=== PATIENT | female | born 1940 | race Caucasian/White ===

== ENCOUNTER 2021-12-30 08:13 | Day surgery (SDC) | payer MEDICARE, OTHER ==
[~2021-12-30] VITALS: Ht 165.1 cm; Wt 62.0 kg
[~2021-12-30 08:13] MED LIST: MELATONIN1 MG PO; PRILOSEC OTC20 MG PO; SYNTHROID25 MCG PO
[2021-12-30] MEDS ORDERED: SIMVASTATIN5 MG PO (08:48)
--- NOTE | 2021-12-30 10:26 | NUR ---
12/30/21 1026 Sandra Winkler 2742 PT ARRIVED IN PACU SLEEPY WITH NO C/O'S. 1000 DR AT BEDSIDE TALKING WITH PT. ALL QUESTIONS ANSWERED. 1015 GETTING DRESSED. 1020 DC INSTRUCTIONS GIVEN TO PT/SPOUSE. LEFT VIA W/C.
--- NOTE | 2021-12-31 09:48 | OR ---
[facility] [address], [place] [address] Signed DATE OF OPERATION: 12/30/2021 SURGEON: Nadia Carroll MD PREOPERATIVE DIAGNOSES: 1. Longstanding gastroesophageal reflux, long-standing PPI medication. 2. Family history of gastric carcinoma (sister). POSTOPERATIVE DIAGNOSES: 1. Multiple gastric polyps (likely related to PPI use). 2. Minimal distal chronic esophagitis without Gutierrez's epithelium, stricture or neoplasm. PROCEDURE: Esophagogastroduodenoscopy with biopsy including excision of help desk representative gastric polyp. ANESTHESIA: Intravenous sedation; fentanyl 100 mcg and Versed 3 mg. INDICATION: This 81-year-old white woman is a patient of Dr. Friedman and additionally MARCIA Jones. She has longstanding gastroesophageal reflux which she has been managed with PPI medication (Prilosec) and is symptom-free. She has a family history of gastric carcinoma in a sister. She is admitted at this time to undergo upper endoscopy. She understands the risk of bleeding, infection, and perforation. FINDINGS: Esophagus was essentially normal. There is mild distal esophagitis in the distal portion, but no Gutierrez's epithelium, stricture, neoplasm or other abnormality. There were multiple gastric polyps almost certainly related to PPI use. Pylorus and duodenum were normal. The flap valve was quite good actually. DESCRIPTION OF PROCEDURE: The patient was brought to the endoscopy suite and placed in the lateral decubitus position, given hypopharyngeal topical anesthetic lidocaine. She was given intravenous sedation to point of slurred speech and nystagmus with full cardiopulmonary monitoring. A bite block was placed. An Olympus video upper endoscope was passed in the hypopharynx. The vocal cords were normal. Scope was easily advanced to the esophagus, throughout its length it was normal; distal portion showed mild chronic inflammatory Electronically Signed By: NADIA CARROLL MD 12/31/21 0948 PATIENT NAME: MARY KAY KEYES OPERATIVE REPORT DATE OF : 44 REPORT #: [id number] PHYSICIAN: NADIA CARROLL MD PCP: JARAD MITCHELL REPORT IS CONFIDENTIAL AND NOT TO BE RELEASED WITHOUT AUTHORIZATION [facility] [address], [place] [address] Signed change, but no stricture, neoplasm, or Gutierrez's epithelium. Scope was advanced to the stomach, which was insufflated with air. Rugal folds were normal, but there were multiple polyps, but most dominantly in the proximal stomach. There were some antral polyps as well. The pylorus was normal and scope was passed through into the duodenum. The duodenum was normal. Biopsies were obtained to assess for celiac disease. The scope was withdrawn and biopsies taken of the antrum for both ROMAIN and pathologic testing. Retroflexed view showed a surprisingly good flap valve. Certainly, no evidence of hiatal hernia at all. A help desk representative gastric polyp was excised. All of them appeared to be hyperplastic nonadenomatous polyps. The scope was straightened and withdrawn. Biopsies taken of the distal esophageal mucosa and subsequently midesophageal area as well. The scope was removed. The patient was taken to the recovery room in good condition. CONCLUDING DIAGNOSES: Asymptomatic regarding reflux disease on PPI medication. Gastric polyps likely related to chronic PPI use. As the medications are helpful in controlling her reflux symptoms and her flap valve is quite good otherwise, would recommend continued PPI use. There is no evidence of gastric cancer despite her family history of the same related to her sister. PLAN: She will return to the ongoing care of Dr. Friedman as well as MARCIA Jones. Nadia Carroll MD JM/MODL /[id number] cc: Dr. Idalia Mitchell Electronically Signed By: NADIA CARROLL MD 12/31/21 0948 PATIENT NAME: MARY KAY KEYES OPERATIVE REPORT DATE OF : 44 REPORT #: [id number] PHYSICIAN: NADIA CARROLL MD PCP: JARAD MITCHELL REPORT IS CONFIDENTIAL AND NOT TO BE RELEASED WITHOUT AUTHORIZATION [address] [address] Signed Copies: JARAD MITCHELL Electronically Signed By: NADIA CARROLL MD 12/31/21 0948 PATIENT NAME: MARY KAY KEYES OPERATIVE REPORT DATE OF : 44 REPORT #: [id number] PHYSICIAN: NADIA CARROLL MD PCP: JARAD MITCHELL REPORT IS CONFIDENTIAL AND NOT TO BE RELEASED WITHOUT AUTHORIZATION
--- NOTE | 2022-01-02 09:30 | PATH ---
[facility] [address] [facility] [place] [place] [address] Signed SPECIMEN(S): A DUODENAL BIOPSY SPECIMEN(S): B GASTRIC POLYP SPECIMEN(S): C ANTRUM/PYLORUS BIOPSY SPECIMEN(S): D DISTAL ESOPHAGEAL BIOPSY SPECIMEN(S): E MID ESOPHAGEAL BIOPSY SPECIMEN SOURCE: A. DUODENAL BIOPSY B. GASTRIC POLYP C. ANTRUM/PYLORUS BIOPSY D. DISTAL ESOPHAGEAL BIOPSY E. MID ESOPHAGEAL BIOPSY CLINICAL HISTORY: GERD with esophagitis; family hx stomach Ca. Post op: mild distal esophagitis, gastric polyps. FINAL PATHOLOGIC DIAGNOSIS: A. Duodenal biopsy: - Benign duodenal mucosa, negative for specific diagnostic abnormality. B. Gastric polyp: - Benign fundic gland polyp (one fragment). - Gastric mucosa with superficial chronic inflammation (gastritis). - A Helicobacter pylori immunostain is negative for organisms. C. Antrum / pylorus biopsy: - Benign gastric-type mucosa with superficial chronic gastritis. - Helicobacter pylori immunostain is negative for organisms. D. Distal esophageal biopsy: - Esophageal mucosa with reactive features and scant glandular epithelium with benign features, negative for specialized intestinal metaplasia. - Negative for increased epithelial eosinophils within the esophageal mucosa. - See comment. E. Mid esophageal biopsy: - Benign esophageal epithelium, negative for increased epithelial eosinophils. COMMENT: (Specimen D) The glandular epithelium is insufficient to evaluate for the presence or absence of intestinal metaplasia. Clinical correlation is requested. JVR:marcia:[id number] PATIENT NAME: MARY KAY KEYES DAVID PATHOLOGY DATE OF : 44 REPORT #: [id number] PHYSICIAN: DEBBY BAUTISTA PCP: JARAD MITCHELL REPORT IS CONFIDENTIAL AND NOT TO BE RELEASED WITHOUT AUTHORIZATION [facility] [address] [place], [place] [address] Signed MICROSCOPIC EXAMINATION: Histologic sections of all submitted blocks are examined by light microscopy. These findings, together with the gross examination, support the pathologic diagnosis. A Helicobacter pylori immunostain is performed with appropriate positive and negative controls on blocks (B1) and (C1) and is negative for organisms. JVR:[facility] GROSS DESCRIPTION: Five specimens are received in Five containers labeled with "SH". A. The specimen, labeled "SH, 1," and designated on the requisition "duodenum biopsy," is received in formalin and consists of one fragment of pink-leon tissue (0.4 cm in greatest dimension). The specimen is submitted entirely in cassette A1. B. The specimen, labeled "SH, 2," and designated on the requisition "gastric polypectomy," is received in formalin and consists of 3 fragments of pink-leon tissue (0.1-0.2 cm in greatest dimension). The specimen is submitted entirely in cassette B1. C. The specimen, labeled "SH, 3," and designated on the requisition "antrum/pylorus biopsy," is received in formalin and consists of one fragment of pink-leon tissue (0.3 cm in greatest dimension). The specimen is submitted entirely in cassette C1. D. The specimen, labeled "SH, 4," and designated on the requisition "distal esophagus biopsy," is received in formalin and consists of 3 fragments of white-leon tissue (0.2-0.3 cm in greatest dimension). The specimen is submitted entirely in cassette D1. E. The specimen, labeled "SH, 5," and designated on the requisition "middle esophagus biopsy," is received in formalin and consists of one fragment of white-leon tissue (0.3 cm in greatest dimension). The specimen is submitted entirely in cassette E1. AC (under the direct supervision of a pathologist) ADDITIONAL NOTES: Immunohistochemical and/or in situ hybridization studies were performed on this case with the appropriate positive controls that react as expected. This test was developed and its performance characteristics determined by [employer]. It has not been cleared or approved by the U.S. Food and Drug Administration. The FDA has determined that such clearance or approval is not necessary. This test is used for clinical purposes. It should not be regarded as investigational or for research. [employer] is certified under the PATIENT NAME: MARY KAY KEYES PATHOLOGY DATE OF : 44 REPORT #: [id number] PHYSICIAN: DEBBY BAUTISTA PCP: JARAD MITCHELL REPORT IS CONFIDENTIAL AND NOT TO BE RELEASED WITHOUT AUTHORIZATION [facility] [address] [place], [place] [address] Signed Clinical Laboratory Improvement Amendments of 1988 (CLIA) as qualified to perform high complexity clinical laboratory testing. This assay has not been validated for specimens that have been decalcified. PERFORMING LABORATORY: The technical component was performed by [facility], [address] [place] [id number] (CLIA# [id number]). Professional interpretation was performed by [facility], [address] [place], [place] [address]., [place] [address] (CLIA#: [id number]). Diagnostician: Vidal Forbes MD Pathologist Electronically Signed 01/02/2022 Copies: ~ PATIENT NAME: MARY KAY KEYES DAVID PATHOLOGY DATE OF : 44 REPORT #: [id number] PHYSICIAN: DEBBY BAUTISTA PCP: JARAD MITCHELL REPORT IS CONFIDENTIAL AND NOT TO BE RELEASED WITHOUT AUTHORIZATION
== END 2021-12-30 10:20 | disposition home or self-care (01) ==
LOC: DS 08:13 → OPS 08:13 → DS 08:19 → OPS 10:00 → DS 12:00 → OPS 12:00
PROVIDERS: ATTEND Surgery
PROC: 0DB68ZX Excision of Stomach, Via Natural or Artificial Opening Endoscopic, Diagnostic (ICD-10-PCS; principal; 2021-12-30 10:00)
DX: K21.00 Gastro-esophageal reflux disease with esophagitis, without bleeding (principal); Z80.0 Family history of malignant neoplasm of digestive organs; K31.7 Polyp of stomach and duodenum; E03.9 Hypothyroidism, unspecified; Z88.0 Allergy status to penicillin; Z88.2 Allergy status to sulfonamides; K29.50 Unspecified chronic gastritis without bleeding
CPT/HCPCS: 88305; 88341; 88342; 99153; G0500; J2250; J3010; J7121